=== PATIENT | male | born 1985 | race Caucasian/White ===

== ENCOUNTER 2020-10-20 16:28 | Emergency (ER) | payer OTHER, SELFPAY ==
[2020-10-20 16:30] VITALS: BP 116/80; PULSE 121; RESP 18; TEMP 36.8; O2SAT 100
[2020-10-20 16:53] LABS: Basophils Absolute Auto 0.1 K/mm3 (0.0-0.1); Basophils Percent Auto 0.5 % (0.2-1.2); Eosinophils Percent Auto 0.1 % (0-4.4); Hematocrit 53.7 % (42.0-52.0); Hemoglobin 18.8 g/dL (14.0-18.0); Immature Granulocyte Absolute 0.04 K/mm3 (0.00-0.031); Immature Granulocyte Percent A 0.3 % (0-0.5); Lymphocytes Absolute Auto 0.64 K/mm3 (0.9-3.2); Lymphocytes Percent Auto 4.9 % (18.3-44.2); Mean Corpuscular Hemoglobin 32.1 pg (26-34); Mean Corpuscular Volume 91.6 fl (80-100); Mean Platelet Volume 9.8 fl (7.4-10.4); Monocytes Absolute Auto 1.1 K/mm3 (0.1-0.6); Monocytes Percent Auto 8.5 % (2.6-8.5); Neutrophils Absolute Auto 11.2 K/mm3 (1.3-6.7); Neutrophils Percent Auto 85.7 % (45.5-73.1); Platelet Count Result 236 k/mm3 (150-375); Red Blood Count 5.86 M/mm3 (4.6-6.20); Red Cell Distribution Width 11.8 % (11.5-14.5); White Blood Count 13.1 K/mm3 (4.5-10.0)
[2020-10-20 17:06] LABS: Alanine Aminotransferase 22 U/L (4-50); Albumin Level 4.8 g/dL (3.5-5.1); Alkaline Phosphatase 56 U/L (38-126); Anion Gap 8 mmol/L (8-16); Aspartate Amino Transferase 29 U/L (17-59); Bilirubin,Total 1.1 mg/dL (0.2-1.3); Blood Urea Nitrogen 17 mg/dL (9-20); Calcium 8.9 mg/dL (8.4-10.2); Carbon Dioxide 29 mmol/L (22-30); Chloride 102 mmol/L (98-107); Estimated CRCL calculation 106 ml/min; Estimated Glomerular Filt Rate > 60; Glucose 123 mg/dL (75-110); Lipase 40 U/L (23-300); Sodium 139 mmol/L (137-145)
[2020-10-20 18:53] VITALS: BP 119/79; PULSE 96; RESP 18; O2SAT 98
[2020-10-20] MEDS: ONDANSETRON INJ 4 MG/2 ML VIAL IV PUSH (18:58)
[2020-10-20] MEDS: SODIUM CHLORIDE 0.9% IV 1,000 ML 999 ML IV CONT (18:59)
[2020-10-20 19:13] LABS: Add Urine Microscopic? YES; Appearance Urine Clear (Clear); Bacteria Urine Trace /hpf; Bilirubin Urine Negative (Negative); Blood Urine Negative (Negative); Color Urine Yellow (Yellow); Glucose Urine UA Negative (Negative); Ketones Urine Trace mg/dL (Negative); Leukocyte Esterase Ur Negative LEU/UL (Negative); Mucus Urine Rare /lpf; Nitrate Urine Negative (Negative); Protein Urine 1+ mg/dL (Negative); RBC Urine 0-2 /hpf (0-2); Specific Grav Ur 1.024 (1.001-1.035); Urobilinogen Urine Negative mg/dL (<2.0); WBC Urine 0-3 /hpf
--- NOTE | 2020-10-20 19:17 | ED.NAVMDI ---
HPI - Nausea/Vomiting/Diarrhea General Chief complaint: Nausea/Vomiting/Diarrhea Stated complaint: Vomiting. Diarrhea Time Seen by Provider: 10/20/20 18:41 History of Present Illness HPI Narrative: Patient is a 35-year-old male who presents ER with nausea vomiting diarrhea. Ongoing since this morning. Reports he has had about 2 loose stools an hour. No fevers or chills or sweats. Has some abdominal pain from emesis. Reports his son had similar GI illness in the last week. No alleviating factors identified at home. No syncope. Related Data Home Medications Medication Instructions Recorded Confirmed ergocalciferol (vitamin D2) 3,000 unit PO DAILY 10/20/20 10/20/20 fexofenadine [Mone] 180 mg PO DAILY 10/20/20 10/20/20 multivitamin [Daily Multivitamin] 1 tablet PO DAILY 10/20/20 10/20/20 triamcinolone acetonide [Nasacort] 2 spray INTRANASAL DAILY 10/20/20 10/20/20 Allergies Allergy/AdvReac Type Severity Reaction Status Date / Time No Known Allergies Allergy Unverified 10/20/20 18:43 Review of Systems Review of Systems: All systems reviewed & are unremarkable except as noted in HPI and below Constitutional: Constitutional: Denies chills, Denies fever(s) and Denies weakness ENT: Denies nasal congestion and Denies sore throat Gastrointestinal: Gastrointestinal: Denies abdominal pain, Reports diarrhea, Reports nausea and Reports vomiting Genitourinary: Genitourinary: Denies dysuria and Denies urinary frequency PMFSH Past Medical History Medical History (Updated 10/20/20 @ 19:20 by Michael Gross MD) Healthy adult male Surgical History Surgical History (Updated 10/20/20 @ 19:19 by Michael Gross MD) No history of previous surgery Social History Social History (Updated 10/20/20 @ 19:19 by Michael Gross MD) Smoking status: Never smoker Exam Narrative: Exam Narrative: GENERAL: Well-appearing, well-nourished, and in no acute distress. HEAD: Normocephalic, atraumatic. CHEST: Clear to auscultation. No respiratory distress. HEART: Regular rate and rhythm. Normal peripheral pulses. ABDOMEN: Soft, nontender, nondistended. EXTREMITIES: Normal range of motion. No edema. SKIN: Warm, dry, no rash. NEURO: Alert and oriented x3. PSYCH: Normal mood and affect. Course Course Emergency Course: Feels improved with IV fluid and Zofran. Discharge home with supportive measures. Vital Signs Vital signs: Vital Signs Temperature 98.3 F 10/20/20 16:30 Pulse Rate 121 H 10/20/20 16:30 Respiratory Rate 18 10/20/20 16:30 Blood Pressure 116/80 10/20/20 16:30 Pulse Oximetry 100 10/20/20 16:30 Temperature 98.3 F 10/20/20 16:30 Pulse Rate 95 10/20/20 19:37 Respiratory Rate 13 10/20/20 19:37 Blood Pressure 105/63 10/20/20 19:37 Pulse Oximetry 97 10/20/20 19:37 MDM - Nausea/Vomiting/Diarrhea Lab Data Result diagrams: 10/20/20 16:36 10/20/20 16:36 Labs: Lab Results 10/20/20 10/20/20 10/20/20 Range/Units 16:36 16:36 18:50 WBC 13.1 H (4.5-10.0) K/mm3 RBC 5.86 (4.6-6.20) M/mm3 Hgb 18.8 H (14.0-18.0) g/dL Hct 53.7 H (42.0-52.0) % MCV 91.6 (80-100) fl MCH 32.1 (26-34) pg MCHC 35.0 (32-36) g/dl RDW 11.8 (11.5-14.5) % Plt Count 236 (150-375) k/mm3 MPV 9.8 (7.4-10.4) fl Immature Gran % (Auto) 0.3 (0-0.5) % Neut % (Auto) 85.7 H (45.5-73.1) % Lymph % (Auto) 4.9 L (18.3-44.2) % [place] % (Auto) 8.5 (2.6-8.5) % Eos % (Auto) 0.1 (0-4.4) % Baso % (Auto) 0.5 (0.2-1.2) % Lymph # (Auto) 0.64 L (0.9-3.2) K/mm3 [place] # (Auto) 1.1 H (0.1-0.6) K/mm3 Eos # (Auto) 0.0 (0-0.3) K/mm3 Baso # (Auto) 0.1 (0.0-0.1) K/mm3 Abs Immat Gran (auto) 0.04 H (0.00-0.031) K/mm3 Absolute Neuts (auto) 11.2 H (1.3-6.7) K/mm3 Absolute Nucleated RBC 0.0 (0.0-0.012) K/mm3 Nucleated RBC % 0.0 (0.0-0.2) % Sodium 139 (137-145) mmol/L Potassium 4.
[2020-10-20 19:37] VITALS: BP 105/63; PULSE 95; RESP 13; O2SAT 97
--- NOTE | 2020-10-20 19:39 | PC.NURSE ---
Assumed care of pt. at this time. Report from LAURA Romano
[2020-10-20 20:10] VITALS: BP 109/70; PULSE 92; RESP 17; O2SAT 97
== END 2020-10-20 20:10 | disposition home or self-care (01) ==
PROVIDERS: Emergency Provider Emergency Medicine; PCP Nurse Practitioner
DX: K52.9 Noninfective gastroenteritis and colitis, unspecified (principal)
CPT/HCPCS: 36415; 80053; 81001; 83690; 85025; 96361; 96374; 99284; J2405; J7030

== ENCOUNTER → 2021-06-07 13:54 | Outpatient (CLI) | payer OTHER, SELFPAY ==
--- NOTE | ~2021-06-07 | CT_ITS ---
EXAMINATION: CT sinus wo con DATE: 06/07/2021 14:12 INDICATION: Chronic sinusitis TECHNIQUE: Computed tomography (CT) of the paranasal sinuses was performed without intravenous contra st. The dose-length product was 279.12 mGy-cm. Automated exposure control and iterative reconstructio n technique were employed. COMPARISON: CT dated 06/07/2016 FINDINGS: There is mucosal thickening of the right maxillary and ethmoid air cells. No air-fluid leve ls. No significant mucosal periosteal reaction. Leftward nasal septal deviation. There is a right-darcie ed woo bullosa. Mastoids are pneumatized. Right ostiomeatal unit is occluded by soft tissue. Left ostiomeatal unit is patent. IMPRESSION: 1. Mild sinus disease with leftward nasal septal deviation. Reviewed, dictated and finalized at location A. [employer]
== END ==
PROVIDERS: Visit Provider Otolaryngology
DX: J32.8 Other chronic sinusitis (principal)
CPT/HCPCS: 70486